=== PATIENT | female | born 1960 | race African-American/Black ===

== ENCOUNTER 2018-01-25 19:53 | Inpatient (IN) | payer MEDICARE, BC ==
[2018-01-25] MEDS: SOD CHLORIDE 0.9% 1,000 ML IV (23:40)
[2018-01-25] MEDS: INSULIN LISPRO 100 UNIT/ML VIAL SC (23:41)
[2018-01-25 23:47] LABS: ADD MAN DIFF? NO
[2018-01-25 23:50] LABS: BASOPHILS % 0.5 % (0.0-2.0); EOSINOPHILS # 0.2 10^3/ul (0.0-0.5); EOSINOPHILS % 3.3 % (0.0-7.0); HEMATOCRIT 33.5 % (37.0-47.0); HEMOGLOBIN 11.1 g/dl (12.0-16.0); LYMPHOCYTES % 26.7 % (15.0-51.0); MEAN CORPUSCULAR HEMOGLOBIN 28.6 pg (29.0-33.0); MEAN CORPUSCULAR HGB CONC 33.1 g/dl (32.0-37.0); MEAN CORPUSCULAR VOLUME 86.3 fl (82.0-101.0); MEAN PLATELET VOLUME 10.7 fl (7.4-10.4); MONOCYTE # 0.6 10^3/ul (0.3-0.9); MONOCYTES % 7.8 % (0.0-11.0); NEUTROPHIL # 4.5 10^3/ul (1.6-7.5); NEUTROPHILS % 61.2 % (39.0-77.0); PLATELET COUNT 205 10^3/UL (140-415); RED BLOOD COUNT 3.88 10^6/ul (4.20-5.40); RED CELL DISTRIBUTION WIDTH 12.3 % (11.5-14.5)
[2018-01-25 23:50] LABS: WHITE BLOOD COUNT 7.3 10^3/ul (4.8-10.8)
[2018-01-25 23:56] LABS: ADD UMIC YES; UR ASCORBIC ACID NEGATIVE (NEGATIVE); UR BILIRUBIN (Dip) NEGATIVE (NEGATIVE); UR BLOOD (Dip) NEGATIVE (NEGATIVE); UR CLARITY CLEAR (CLEAR); UR COLOR STRAW (YELLOW); UR GLUCOSE (Dip) 3+ mg/dL (NEGATIVE); UR KETONES (Dip) NEGATIVE (NEGATIVE); UR LEUKOCYTE ESTERASE (Dip) TRACE Leu/ul (NEGATIVE); UR NITRITE (Dip) NEGATIVE (NEGATIVE); UR RBC 0 /HPF (0-5); UR SPECIFIC GRAVITY (Dip) 1.017 (1.003-1.030); UR TOTAL PROTEIN (Dip) NEGATIVE (NEGATIVE); UR UROBILINOGEN (Dip) NEGATIVE (NEGATIVE); UR WBC 4 /HPF (0-5)
[2018-01-26 00:38] LABS: LACTIC ACID 2.5 mmol/L (0.5-2.0)
[2018-01-26] MEDS: SODIUM CHLORIDE 0.9% 1L BAG IV* (00:42)
[2018-01-26 00:48] LABS: ALANINE AMINOTRANSFERASE 20 IU/L (13-69); ALBUMIN 4.2 g/dl (3.3-4.9); ALKALINE PHOSPHATASE 82 IU/L (42-121); ANION GAP 18 (8-16); ASPARTATE AMINO TRANSFERASE 21 IU/L (15-46); BILIRUBIN,INDIRECT 0.2 mg/dl (0-1.1); BILIRUBIN,TOTAL 0.2 mg/dl (0.2-1.3); BLOOD UREA NITROGEN 36 mg/dl (7-20); CALCIUM 9.5 mg/dl (8.4-10.2); CARBON DIOXIDE 26 mmol/L (21-31); CHLORIDE 97 mmol/L (97-110); CREATININE 1.14 mg/dl (0.44-1.00); POTASSIUM 5.1 mmol/L (3.5-5.1); SODIUM 136 mmol/L (135-144); TOTAL PROTEIN 7.2 g/dl (6.1-8.1)
[2018-01-26 00:50] LABS: GLUCOSE 446 mg/dl (70-220)
[2018-01-26] MEDS: CEFEPIME 2GM/50 ML (PMX) 50 ML IVPB (03:50)
[2018-01-26 04:19] LABS: LACTIC ACID 2.2 mmol/L (0.5-2.0)
[2018-01-26] MEDS: VANCOMYCIN 1 GM (PMX) 250 ML IVPB (04:30)
[2018-01-26 07:10] LABS: LACTIC ACID 2.4 mmol/L (0.5-2.0)
[2018-01-26] MEDS: morphine 2 MG INJ IV (07:15)
[2018-01-26] MEDS: ENOXAPARIN 40 MG/0.4 ML SYG SC (11:30)
[2018-01-26] MEDS: SOD CHLORIDE 0.9% 1,000 ML IV (11:51)
[2018-01-26] MEDS: INSULIN ASPART [NOVOLOG] 3 ML PEN SC ×4 (12:09→20:54)
[2018-01-26] MEDS ORDERED: DEXTROSE 50% 50 ML SYRINGE IV ×2 (12:30)
[2018-01-26] MEDS ORDERED: GLUCOSE GEL 15 GRAM TUBE BUCCAL (12:30)
[2018-01-26] MEDS ORDERED: GLUCAGON 1 MG INJ IM (12:30)
[2018-01-26] MEDS ORDERED: GLUCOSE GEL 15 GRAM TUBE PO ×2 (12:30)
[2018-01-26] MEDS ORDERED: morphine LIQ (10 MG/5 ML) CUP PO (14:30)
[2018-01-26] MEDS: FUROSEMIDE 40 MG TAB PO (17:16)
[2018-01-26] MEDS: INSULIN GLARGINE [LANtus] 3 ML PEN SC (20:53)
[2018-01-26] MEDS: ATORVASTATIN 20 MG TAB PO (20:58)
[2018-01-26] MEDS: CEFEPIME 1GM/50 ML (PMX) 50 ML IVPB (21:00)
[2018-01-27] MEDS: ACCU-CHEK XX ×2 (02:00)
[2018-01-27] MEDS: FUROSEMIDE 40 MG TAB PO ×2 (05:06→20:50)
[2018-01-27] MEDS: ACETAMINOPHEN 325 MG TAB PO (05:06)
[2018-01-27 05:53] LABS: ADD MAN DIFF? NO
[2018-01-27 05:57] LABS: WHITE BLOOD COUNT 7.2 10^3/ul (4.8-10.8)
[2018-01-27 05:57] LABS: BASOPHIL # 0.1 10^3/ul (0.0-0.1); BASOPHILS % 0.7 % (0.0-2.0); EOSINOPHILS # 0.2 10^3/ul (0.0-0.5); EOSINOPHILS % 3.2 % (0.0-7.0); HEMATOCRIT 33.2 % (37.0-47.0); HEMOGLOBIN 11.3 g/dl (12.0-16.0); LYMPHOCYTES # 2.1 10^3/ul (0.8-2.9); LYMPHOCYTES % 28.9 % (15.0-51.0); MEAN CORPUSCULAR HEMOGLOBIN 29.6 pg (29.0-33.0); MEAN CORPUSCULAR VOLUME 86.9 fl (82.0-101.0); MONOCYTE # 0.4 10^3/ul (0.3-0.9); MONOCYTES % 6.1 % (0.0-11.0); NEUTROPHIL # 4.4 10^3/ul (1.6-7.5); PLATELET COUNT 219 10^3/UL (140-415); RED BLOOD COUNT 3.82 10^6/ul (4.20-5.40)
[2018-01-27 06:50] LABS: ANION GAP 19 (8-16); BLOOD UREA NITROGEN 32 mg/dl (7-20); CALCIUM 9.4 mg/dl (8.4-10.2); CARBON DIOXIDE 26 mmol/L (21-31); CHLORIDE 99 mmol/L (97-110); CREATININE 1.13 mg/dl (0.44-1.00); GLUCOSE 248 mg/dl (70-220); SODIUM 139 mmol/L (135-144)
[2018-01-27] MEDS: INSULIN ASPART [NOVOLOG] 3 ML PEN SC ×7 (07:41→20:54)
[2018-01-27] MEDS: LISINOPRIL 20 MG TAB PO (08:31)
[2018-01-27] MEDS: SPIRONOLACTONE 25 MG TAB PO (08:31)
[2018-01-27] MEDS: ASPIRIN (EC) 81 MG TAB PO (08:31)
[2018-01-27] MEDS: ENOXAPARIN 40 MG/0.4 ML SYG SC (08:33)
[2018-01-27] MEDS: CEFEPIME 1GM/50 ML (PMX) 50 ML IVPB (09:00)
[2018-01-27] MEDS: AMLODIPINE 5 MG TAB PO (12:18)
[2018-01-27] MEDS: LEVOFLOXACIN 250 MG TAB PO (17:18)
[2018-01-27] MEDS ORDERED: INSULIN ASPART [NOVOLOG] 3 ML PEN SC (17:35)
[2018-01-27] MEDS: ATORVASTATIN 20 MG TAB PO (20:51)
[2018-01-27] MEDS: INSULIN GLARGINE [LANtus] 3 ML PEN SC (20:52)
[2018-01-28] MEDS: ACCU-CHEK XX ×2 (02:13)
[2018-01-28] MEDS: ACETAMINOPHEN 325 MG TAB PO (02:17)
[2018-01-28] MEDS: DOCUSATE SODIUM 100 MG CAP PO ×2 (02:18→17:34)
[2018-01-28] MEDS: POLYETHYLENE GLYCOL 17 GM PACKET PO (02:20)
[2018-01-28] MEDS: LEVOFLOXACIN 250 MG TAB PO (05:09)
[2018-01-28] MEDS: FUROSEMIDE 40 MG TAB PO ×2 (05:10→17:28)
[2018-01-28 05:18] LABS: ADD MAN DIFF? NO
[2018-01-28 05:23] LABS: WHITE BLOOD COUNT 7.4 10^3/ul (4.8-10.8)
[2018-01-28 05:23] LABS: BASOPHILS % 0.4 % (0.0-2.0); EOSINOPHILS # 0.3 10^3/ul (0.0-0.5); EOSINOPHILS % 3.4 % (0.0-7.0); HEMATOCRIT 35.6 % (37.0-47.0); HEMOGLOBIN 11.9 g/dl (12.0-16.0); LYMPHOCYTES # 1.9 10^3/ul (0.8-2.9); LYMPHOCYTES % 24.9 % (15.0-51.0); MEAN CORPUSCULAR HEMOGLOBIN 28.7 pg (29.0-33.0); MEAN CORPUSCULAR HGB CONC 33.4 g/dl (32.0-37.0); MEAN CORPUSCULAR VOLUME 85.8 fl (82.0-101.0); MEAN PLATELET VOLUME 10.6 fl (7.4-10.4); MONOCYTE # 0.5 10^3/ul (0.3-0.9); NEUTROPHIL # 4.8 10^3/ul (1.6-7.5); PLATELET COUNT 236 10^3/UL (140-415); RED BLOOD COUNT 4.15 10^6/ul (4.20-5.40); RED CELL DISTRIBUTION WIDTH 11.9 % (11.5-14.5)
[2018-01-28 05:43] LABS: CHOLESTEROL 182 mg/dl (100-200)
[2018-01-28 05:43] LABS: HDL CHOLESTEROL 36 mg/dl (35-98); LDL CHOLESTEROL,CALCULATED 80 mg/dl; TRIGLYCERIDES 332 mg/dl (0-149)
[2018-01-28 05:44] LABS: ANION GAP 18 (8-16); BLOOD UREA NITROGEN 35 mg/dl (7-20); CARBON DIOXIDE 29 mmol/L (21-31); CHLORIDE 97 mmol/L (97-110); CREATININE 1.22 mg/dl (0.44-1.00); GLUCOSE 241 mg/dl (70-220); POTASSIUM 4.6 mmol/L (3.5-5.1); SODIUM 139 mmol/L (135-144)
[2018-01-28] MEDS: INSULIN ASPART [NOVOLOG] 3 ML PEN SC ×7 (07:33→20:58)
[2018-01-28] MEDS: LISINOPRIL 20 MG TAB PO (09:35)
[2018-01-28] MEDS: ASPIRIN (EC) 81 MG TAB PO (09:35)
[2018-01-28] MEDS: AMLODIPINE 5 MG TAB PO (09:36)
[2018-01-28] MEDS: SPIRONOLACTONE 25 MG TAB PO (09:36)
[2018-01-28] MEDS: ENOXAPARIN 40 MG/0.4 ML SYG SC (09:41)
[2018-01-28] MEDS: INSULIN GLARGINE [LANtus] 3 ML PEN SC (21:03)
[2018-01-28] MEDS: ATORVASTATIN 20 MG TAB PO (21:09)
[2018-01-29] MEDS: ACCU-CHEK XX ×2 (02:00)
[2018-01-29 05:12] LABS: ADD MAN DIFF? NO
[2018-01-29 05:16] LABS: BASOPHILS % 0.5 % (0.0-2.0); EOSINOPHILS # 0.2 10^3/ul (0.0-0.5); HEMATOCRIT 33.6 % (37.0-47.0); HEMOGLOBIN 11.3 g/dl (12.0-16.0); LYMPHOCYTES # 2.2 10^3/ul (0.8-2.9); LYMPHOCYTES % 30.3 % (15.0-51.0); MEAN CORPUSCULAR HEMOGLOBIN 28.8 pg (29.0-33.0); MEAN CORPUSCULAR HGB CONC 33.6 g/dl (32.0-37.0); MEAN CORPUSCULAR VOLUME 85.5 fl (82.0-101.0); MEAN PLATELET VOLUME 11.6 fl (7.4-10.4); MONOCYTE # 0.5 10^3/ul (0.3-0.9); MONOCYTES % 6.1 % (0.0-11.0); NEUTROPHIL # 4.4 10^3/ul (1.6-7.5); NEUTROPHILS % 59.8 % (39.0-77.0); RED BLOOD COUNT 3.93 10^6/ul (4.20-5.40); RED CELL DISTRIBUTION WIDTH 11.9 % (11.5-14.5)
[2018-01-29 05:16] LABS: WHITE BLOOD COUNT 7.4 10^3/ul (4.8-10.8)
[2018-01-29] MEDS: ACETAMINOPHEN 325 MG TAB PO (05:19)
[2018-01-29] MEDS: LEVOFLOXACIN 250 MG TAB PO (05:19)
[2018-01-29] MEDS: FUROSEMIDE 40 MG TAB PO (05:27)
[2018-01-29 05:28] LABS: HEMOGLOBIN A1C 9.4 % (0-5.9)
[2018-01-29 05:31] LABS: PLATELET COUNT 184 10^3/UL (140-415); POSITIVE DIFF @See below
[2018-01-29 05:54] LABS: ANION GAP 17 (8-16); BLOOD UREA NITROGEN 44 mg/dl (7-20); CALCIUM 9.7 mg/dl (8.4-10.2); CARBON DIOXIDE 27 mmol/L (21-31); CHLORIDE 98 mmol/L (97-110); CREATININE 1.51 mg/dl (0.44-1.00); GLUCOSE 211 mg/dl (70-220); POTASSIUM 4.6 mmol/L (3.5-5.1); SODIUM 137 mmol/L (135-144)
[2018-01-29] MEDS: INSULIN ASPART [NOVOLOG] 3 ML PEN SC ×4 (07:30→12:04)
[2018-01-29] MEDS: ENOXAPARIN 40 MG/0.4 ML SYG SC (09:00)
[2018-01-29] MEDS: AMLODIPINE 5 MG TAB PO (09:01)
[2018-01-29] MEDS: LISINOPRIL 20 MG TAB PO (09:01)
[2018-01-29] MEDS: SPIRONOLACTONE 25 MG TAB PO (09:02)
[2018-01-29] MEDS: ASPIRIN (EC) 81 MG TAB PO (09:02)
[2018-01-29] MEDS: SOD CHLORIDE 0.45% 1,000 ML IV (11:25)
== END 2018-01-29 12:52 | disposition home or self-care (01) | DRG 872 ==
LOC: E/R 19:53 → MS3 01-26 01:22
PROVIDERS: Internal Medicine
DX: A41.9 Sepsis, unspecified organism (principal); I13.0 Hypertensive heart and chronic kidney disease with heart failure and stage 1 through stage 4 chronic kidney disease, or unspecified chronic kidney disease; I50.22 Chronic systolic (congestive) heart failure; N17.9 Acute kidney failure, unspecified; E87.2 Acidosis; R65.20 Severe sepsis without septic shock; E11.65 Type 2 diabetes mellitus with hyperglycemia; E11.22 Type 2 diabetes mellitus with diabetic chronic kidney disease; N18.3 Chronic kidney disease, stage 3 (moderate); E11.21 Type 2 diabetes mellitus with diabetic nephropathy; I48.0 Paroxysmal atrial fibrillation; D63.1 Anemia in chronic kidney disease; Z90.710 Acquired absence of both cervix and uterus; Z79.82 Long term (current) use of aspirin; Z79.4 Long term (current) use of insulin
CPT/HCPCS: 70450; 71045; 80048; 80053; 80061; 81001; 82962; 83036; 83605; 85025; 87040; 87086; 87400; 96372; 96374; 96375; 99291-25

== ENCOUNTER 2018-07-07 21:08 | Emergency (ER) | payer MEDICARE, BC ==
[2018-07-07 22:11] LABS: URINE BLOOD (Dip) POC Negative (NEGATIVE); URINE GLUCOSE (Dip) POC Negative (NEGATIVE); URINE KETONES (Dip) POC Negative (NEGATIVE); URINE LEUKOCYTE EST (Dip) POC Trace (NEGATIVE); URINE NITRITE (Dip) POC Negative (NEGATIVE); URINE TOTAL PROTEIN POC Negative (NEGATIVE)
[2018-07-07] MEDS: morphine 4 MG/ML VIAL IV (22:49)
[2018-07-07] MEDS: ONDANSETRON 4 MG INJ IV (22:49)
[2018-07-07] MEDS: SOD CHLORIDE 0.9% 1,000 ML IV (22:49)
[2018-07-07 23:15] LABS: ADD UMIC YES; UR ASCORBIC ACID NEGATIVE (NEGATIVE); UR BACTERIA FEW /HPF (NONE SEEN); UR BILIRUBIN (Dip) NEGATIVE (NEGATIVE); UR BLOOD (Dip) NEGATIVE (NEGATIVE); UR CLARITY SLIGHTLY CLOUDY (CLEAR); UR COLOR YELLOW (YELLOW); UR GLUCOSE (Dip) NEGATIVE (NEGATIVE); UR KETONES (Dip) NEGATIVE (NEGATIVE); UR LEUKOCYTE ESTERASE (Dip) TRACE Leu/ul (NEGATIVE); UR NITRITE (Dip) NEGATIVE (NEGATIVE); UR RBC 0 /HPF (0-5); UR SPECIFIC GRAVITY (Dip) 1.015 (1.003-1.030); UR TOTAL PROTEIN (Dip) NEGATIVE (NEGATIVE); UR UROBILINOGEN (Dip) NEGATIVE (NEGATIVE); UR WBC 10 /HPF (0-5)
[2018-07-07 23:26] LABS: ADD MAN DIFF? NO
[2018-07-07 23:28] LABS: WHITE BLOOD COUNT 7.6 10^3/ul (4.8-10.8)
[2018-07-07 23:28] LABS: BASOPHILS % 0.4 % (0.0-2.0); EOSINOPHILS # 0.3 10^3/ul (0.0-0.5); EOSINOPHILS % 3.9 % (0.0-7.0); HEMATOCRIT 33.4 % (37.0-47.0); HEMOGLOBIN 10.8 g/dl (12.0-16.0); LYMPHOCYTES # 2.7 10^3/ul (0.8-2.9); LYMPHOCYTES % 34.8 % (15.0-51.0); MEAN CORPUSCULAR HEMOGLOBIN 28.3 pg (29.0-33.0); MEAN CORPUSCULAR HGB CONC 32.3 g/dl (32.0-37.0); MEAN CORPUSCULAR VOLUME 87.7 fl (82.0-101.0); MEAN PLATELET VOLUME 10.6 fl (7.4-10.4); MONOCYTE # 0.5 10^3/ul (0.3-0.9); MONOCYTES % 6.7 % (0.0-11.0); NEUTROPHIL # 4.1 10^3/ul (1.6-7.5); NEUTROPHILS % 54.1 % (39.0-77.0); PLATELET COUNT 250 10^3/UL (140-415); RED BLOOD COUNT 3.81 10^6/ul (4.20-5.40); RED CELL DISTRIBUTION WIDTH 11.9 % (11.5-14.5)
[2018-07-07 23:48] LABS: ALANINE AMINOTRANSFERASE 21 IU/L (13-69); ALBUMIN 3.7 g/dl (3.3-4.9); ALBUMIN/GLOBULIN RATIO 1.12; ALKALINE PHOSPHATASE 89 IU/L (42-121); ANION GAP 14 (8-16); ASPARTATE AMINO TRANSFERASE 16 IU/L (15-46); BILIRUBIN,INDIRECT 0.3 mg/dl (0-1.1); BILIRUBIN,TOTAL 0.3 mg/dl (0.2-1.3); BLOOD UREA NITROGEN 28 mg/dl (7-20); CALCIUM 9.5 mg/dl (8.4-10.2); CARBON DIOXIDE 29 mmol/L (21-31); CHLORIDE 98 mmol/L (97-110); CREATININE 1.02 mg/dl (0.44-1.00); GLUCOSE 260 mg/dl (70-220); LIPASE 79 U/L (23-300); POTASSIUM 4.2 mmol/L (3.5-5.1); SODIUM 137 mmol/L (135-144)
[2018-07-07 23:58] LABS: TROPONIN-I < 0.012 ng/ml (0.000-0.120)
[2018-07-08] MEDS: DIPHENHYDRAMINE 50 MG INJ IV (00:35)
== END 2018-07-08 07:14 | disposition home or self-care (01) ==
LOC: E/R 07-08 07:14
DX: K80.50 Calculus of bile duct without cholangitis or cholecystitis without obstruction (principal); E86.0 Dehydration; D64.9 Anemia, unspecified; I25.10 Atherosclerotic heart disease of native coronary artery without angina pectoris; I10 Essential (primary) hypertension; I50.9 Heart failure, unspecified; E11.9 Type 2 diabetes mellitus without complications; Z79.4 Long term (current) use of insulin
CPT/HCPCS: 71250; 74176; 80053; 81001; 81003; 83690; 84484; 85025; 93005; 96361; 96374; 96375; 99285-25

== ENCOUNTER 2018-09-26 02:47 | Observation (INO) | payer MEDICARE, BC ==
[2018-09-26] MEDS: ASPIRIN 81 MG TAB PO (03:38)
[2018-09-26] MEDS: NITROGLYCERIN (SL) 0.4 MG TAB SL (03:38)
[2018-09-26] MEDS: NITROGLYCERIN 2% 1 GM OINT PKT TD (03:39)
[2018-09-26 03:40] LABS: ADD MAN DIFF? NO
[2018-09-26 03:49] LABS: ANION GAP 11 (5-13); BLOOD UREA NITROGEN 45 mg/dl (7-20); CALCIUM 10.6 mg/dl (8.4-10.2); CARBON DIOXIDE 30 mmol/L (21-31); CHLORIDE 99 mmol/L (97-110); CREATININE 1.22 mg/dl (0.44-1.00); Estimated GFR 55 mL/min (>60); GLUCOSE 177 mg/dl (70-220); POTASSIUM 4.9 mmol/L (3.5-5.1); SODIUM 140 mmol/L (135-144)
[2018-09-26 04:00] LABS: TROPONIN-I < 0.012 ng/ml (0.000-0.120)
[2018-09-26 04:06] LABS: BASOPHIL # 0.1 10^3/ul (0.0-0.1); BASOPHILS % 0.6 % (0.0-2.0); EOSINOPHILS # 0.4 10^3/ul (0.0-0.5); EOSINOPHILS % 4.8 % (0.0-7.0); HEMATOCRIT 35.4 % (37.0-47.0); HEMOGLOBIN 11.6 g/dl (12.0-16.0); LYMPHOCYTES # 2.8 10^3/ul (0.8-2.9); LYMPHOCYTES % 34.3 % (15.0-51.0); MEAN CORPUSCULAR HEMOGLOBIN 28.8 pg (29.0-33.0); MEAN CORPUSCULAR HGB CONC 32.8 g/dl (32.0-37.0); MEAN CORPUSCULAR VOLUME 87.8 fl (82.0-101.0); MEAN PLATELET VOLUME 11.1 fl (7.4-10.4); MONOCYTE # 0.6 10^3/ul (0.3-0.9); MONOCYTES % 6.9 % (0.0-11.0); NEUTROPHIL # 4.3 10^3/ul (1.6-7.5); PLATELET COUNT 228 10^3/UL (140-415); RED BLOOD COUNT 4.03 10^6/ul (4.20-5.40); RED CELL DISTRIBUTION WIDTH 12.4 % (11.5-14.5)
[2018-09-26 04:06] LABS: WHITE BLOOD COUNT 8.1 10^3/ul (4.8-10.8)
[2018-09-26] MEDS: SOD CHLORIDE 0.9% 1,000 ML IV (04:21)
[2018-09-26] MEDS ORDERED: ONDANSETRON 4 MG INJ IV (05:00)
[2018-09-26] MEDS ORDERED: ACETAMINOPHEN 325 MG TAB PO (05:00)
[2018-09-26 06:25] LABS: ADD MAN DIFF? NO
[2018-09-26 06:30] LABS: BASOPHILS % 0.3 % (0.0-2.0); EOSINOPHILS # 0.3 10^3/ul (0.0-0.5); HEMATOCRIT 34.3 % (37.0-47.0); LYMPHOCYTES # 2.2 10^3/ul (0.8-2.9); LYMPHOCYTES % 32.5 % (15.0-51.0); MEAN CORPUSCULAR HEMOGLOBIN 28.1 pg (29.0-33.0); MEAN CORPUSCULAR HGB CONC 32.1 g/dl (32.0-37.0); MEAN CORPUSCULAR VOLUME 87.7 fl (82.0-101.0); MEAN PLATELET VOLUME 10.6 fl (7.4-10.4); MONOCYTE # 0.5 10^3/ul (0.3-0.9); MONOCYTES % 6.8 % (0.0-11.0); NEUTROPHIL # 3.7 10^3/ul (1.6-7.5); NEUTROPHILS % 55.1 % (39.0-77.0); PLATELET COUNT 222 10^3/UL (140-415); RED BLOOD COUNT 3.91 10^6/ul (4.20-5.40); RED CELL DISTRIBUTION WIDTH 12.3 % (11.5-14.5)
[2018-09-26 06:30] LABS: WHITE BLOOD COUNT 6.6 10^3/ul (4.8-10.8)
[2018-09-26 07:04] LABS: HDL CHOLESTEROL 35 mg/dl (35-98); LDL CHOLESTEROL,CALCULATED 76 mg/dl; TRIGLYCERIDES 152 mg/dl (0-149)
[2018-09-26 07:04] LABS: CHOLESTEROL 141 mg/dl (100-200)
[2018-09-26 07:07] LABS: ANION GAP 8 (5-13); BLOOD UREA NITROGEN 41 mg/dl (7-20); CALCIUM 9.9 mg/dl (8.4-10.2); CARBON DIOXIDE 29 mmol/L (21-31); CHLORIDE 101 mmol/L (97-110); CREATININE 1.12 mg/dl (0.44-1.00); Estimated GFR > 60 mL/min (>60); GLUCOSE 194 mg/dl (70-220); POTASSIUM 4.8 mmol/L (3.5-5.1); SODIUM 138 mmol/L (135-144)
[2018-09-26] MEDS: ENOXAPARIN 30 MG/0.3 ML SYG SC (08:10)
[2018-09-26 09:08] LABS: CREATINE KINASE 109 IU/L (23-200)
[2018-09-26 09:21] LABS: CK INDEX 0.8; CK-MB 0.92 ng/ml (0.0-2.4); TROPONIN-I < 0.012 ng/ml (0.000-0.120)
[2018-09-26] MEDS ORDERED: GLUCOSE GEL 15 GRAM TUBE BUCCAL (11:00)
[2018-09-26] MEDS ORDERED: GLUCOSE GEL 15 GRAM TUBE PO ×2 (11:00)
[2018-09-26] MEDS ORDERED: GLUCAGON 1 MG INJ IM (11:00)
[2018-09-26] MEDS ORDERED: DEXTROSE 50% 50 ML SYRINGE IV ×2 (11:00)
[2018-09-26] MEDS ORDERED: INSULIN ASPART [NOVOLOG] 3 ML PEN SC ×2 (11:50)
[2018-09-26] MEDS: INSULIN ASPART [NOVOLOG] 3 ML PEN SC ×5 (12:28→20:16)
[2018-09-26] MEDS: morphine 2 MG INJ IV ×2 (13:16→18:33)
[2018-09-26 15:54] LABS: CREATINE KINASE 105 IU/L (23-200)
[2018-09-26 16:07] LABS: CK INDEX 0.8; TROPONIN-I < 0.012 ng/ml (0.000-0.120)
[2018-09-26] MEDS: FUROSEMIDE 40 MG TAB PO (17:17)
[2018-09-26 17:54] LABS: TROPONIN-I < 0.012 ng/ml (0.000-0.120)
[2018-09-26] MEDS: ATORVASTATIN 20 MG TAB PO (20:09)
[2018-09-26] MEDS: DOCUSATE SODIUM 100 MG CAP PO (20:10)
[2018-09-26] MEDS: INSULIN GLARGINE [LANTus] (100 UNITS/ML) SYG SC (20:19)
[2018-09-26 23:02] LABS: TROPONIN-I < 0.012 ng/ml (0.000-0.120)
[2018-09-27] MEDS ORDERED: ACCU-CHEK XX (02:00)
[2018-09-27] MEDS: ACCU-CHEK XX (02:00)
[2018-09-27] MEDS: morphine 2 MG INJ IV ×2 (02:55→06:57)
[2018-09-27] MEDS: MAGNESIUM HYDROXIDE 30ML CUP PO (02:55)
[2018-09-27] MEDS: FUROSEMIDE 40 MG TAB PO ×2 (05:12→17:44)
[2018-09-27 06:39] LABS: ADD MAN DIFF? NO
[2018-09-27 06:49] LABS: BASOPHILS % 0.4 % (0.0-2.0); EOSINOPHILS # 0.4 10^3/ul (0.0-0.5); EOSINOPHILS % 5.2 % (0.0-7.0); HEMATOCRIT 32.3 % (37.0-47.0); HEMOGLOBIN 10.6 g/dl (12.0-16.0); LYMPHOCYTES # 2.6 10^3/ul (0.8-2.9); MEAN CORPUSCULAR HEMOGLOBIN 28.8 pg (29.0-33.0); MEAN CORPUSCULAR HGB CONC 32.8 g/dl (32.0-37.0); MEAN CORPUSCULAR VOLUME 87.8 fl (82.0-101.0); MEAN PLATELET VOLUME 10.8 fl (7.4-10.4); MONOCYTE # 0.5 10^3/ul (0.3-0.9); MONOCYTES % 6.9 % (0.0-11.0); NEUTROPHIL # 3.7 10^3/ul (1.6-7.5); NEUTROPHILS % 51.2 % (39.0-77.0); PLATELET COUNT 222 10^3/UL (140-415); RED BLOOD COUNT 3.68 10^6/ul (4.20-5.40); RED CELL DISTRIBUTION WIDTH 12.4 % (11.5-14.5)
[2018-09-27 06:49] LABS: WHITE BLOOD COUNT 7.1 10^3/ul (4.8-10.8)
[2018-09-27 07:07] LABS: HEMOGLOBIN A1C 8.9 % (0-5.9)
[2018-09-27 07:11] LABS: ANION GAP 9 (5-13); BLOOD UREA NITROGEN 39 mg/dl (7-20); CALCIUM 9.4 mg/dl (8.4-10.2); CARBON DIOXIDE 30 mmol/L (21-31); CHLORIDE 99 mmol/L (97-110); CREATININE 1.11 mg/dl (0.44-1.00); Estimated GFR > 60 mL/min (>60); GLUCOSE 146 mg/dl (70-220); POTASSIUM 4.6 mmol/L (3.5-5.1); SODIUM 138 mmol/L (135-144)
[2018-09-27] MEDS: DOCUSATE SODIUM 100 MG CAP PO ×2 (08:23→20:25)
[2018-09-27] MEDS: SPIRONOLACTONE 50 MG TAB PO (08:24)
[2018-09-27] MEDS: ASPIRIN (EC) 81 MG TAB PO (08:25)
[2018-09-27] MEDS: LINAGLIPTIN 5 MG TABLET PO (08:26)
[2018-09-27] MEDS: LISINOPRIL 20 MG TAB PO (08:28)
[2018-09-27] MEDS: INSULIN ASPART [NOVOLOG] 3 ML PEN SC ×7 (08:31→20:14)
[2018-09-27] MEDS: ENOXAPARIN 30 MG/0.3 ML SYG SC (08:33)
[2018-09-27] MEDS: ONDANSETRON 4 MG INJ IV ×2 (08:48→17:44)
[2018-09-27] MEDS: PANTOPRAZOLE (EC) 40 MG TAB PO (13:55)
[2018-09-27] MEDS: traMADol 50 MG TAB PO ×2 (13:59→20:16)
[2018-09-27] MEDS: BISACODYL (EC) 5 MG TAB PO (17:44)
[2018-09-27] MEDS ORDERED: HEPARIN 5,000 UNIT/0.5 ML VIAL (20:00)
[2018-09-27] MEDS: ATORVASTATIN 20 MG TAB PO (20:15)
[2018-09-27] MEDS: INSULIN GLARGINE [LANTus] (100 UNITS/ML) SYG SC (20:18)
[2018-09-27] MEDS: HEPARIN 5,000 UNIT/1 ML VIAL SC (20:24)
[2018-09-28] MEDS: ONDANSETRON 4 MG INJ IV (00:25)
[2018-09-28] MEDS: NA PHOSPHATE/BIPHOS 133 ML ENEMA PR ×2 (00:26→05:48)
[2018-09-28] MEDS: ACCU-CHEK XX (02:00)
[2018-09-28] MEDS: FUROSEMIDE 40 MG TAB PO (05:48)
[2018-09-28] MEDS: PANTOPRAZOLE (EC) 40 MG TAB PO (05:49)
[2018-09-28 07:01] LABS: ANION GAP 11 (5-13); BLOOD UREA NITROGEN 42 mg/dl (7-20); CALCIUM 9.9 mg/dl (8.4-10.2); CARBON DIOXIDE 35 mmol/L (21-31); CHLORIDE 93 mmol/L (97-110); CREATININE 1.59 mg/dl (0.44-1.00); Estimated GFR 40 mL/min (>60); GLUCOSE 179 mg/dl (70-220); POTASSIUM 4.7 mmol/L (3.5-5.1); SODIUM 139 mmol/L (135-144)
[2018-09-28] MEDS: INSULIN ASPART [NOVOLOG] 3 ML PEN SC ×4 (07:58→11:41)
[2018-09-28] MEDS ORDERED: HEPARIN 5,000 UNIT/0.5 ML VIAL (08:18)
[2018-09-28] MEDS: SPIRONOLACTONE 50 MG TAB PO (08:23)
[2018-09-28] MEDS: DOCUSATE SODIUM 100 MG CAP PO ×2 (08:25→08:26)
[2018-09-28] MEDS: LISINOPRIL 20 MG TAB PO (08:26)
[2018-09-28] MEDS: ASPIRIN (EC) 81 MG TAB PO (08:27)
[2018-09-28] MEDS: HEPARIN 5,000 UNIT/1 ML VIAL SC (08:29)
[2018-09-28] MEDS: BISACODYL (EC) 5 MG TAB PO (11:55)
[2018-09-28] MEDS ORDERED: INSULIN ASPART [NOVOLOG] 3 ML PEN SC (17:55)
[2018-09-28] MEDS ORDERED: INSULIN GLARGINE [LANTus] (100 UNITS/ML) SYG SC (20:00)
== END 2018-09-28 14:28 | disposition home or self-care (01) ==
LOC: E/R 02:47 → TEL 04:35
DX: R07.89 Other chest pain (principal); I13.0 Hypertensive heart and chronic kidney disease with heart failure and stage 1 through stage 4 chronic kidney disease, or unspecified chronic kidney disease; E11.22 Type 2 diabetes mellitus with diabetic chronic kidney disease; N18.3 Chronic kidney disease, stage 3 (moderate); I50.20 Unspecified systolic (congestive) heart failure; E78.5 Hyperlipidemia, unspecified; K59.00 Constipation, unspecified; I48.0 Paroxysmal atrial fibrillation; E11.65 Type 2 diabetes mellitus with hyperglycemia; I42.9 Cardiomyopathy, unspecified; Z79.4 Long term (current) use of insulin
CPT/HCPCS: 36415; 71045; 80048; 80061; 82550; 82553; 82962; 83036; 84484; 85025; 93005; 93306; 99285-25; G0378

== ENCOUNTER 2019-04-09 22:14 | Emergency (ER) | payer MEDICARE, BC | END 2019-04-10 00:46 | disposition home or self-care (01) | LOC: FTE 04-10 00:46 | DX: M54.5 Low back pain (principal); I11.0 Hypertensive heart disease with heart failure; I50.9 Heart failure, unspecified; M54.2 Cervicalgia; E11.65 Type 2 diabetes mellitus with hyperglycemia; Z79.4 Long term (current) use of insulin; Z79.82 Long term (current) use of aspirin | CPT/HCPCS: 99283 ==